=== PATIENT | female | born 1950 | race Hispanic/Latino ===

== ENCOUNTER 2021-01-22 07:23 | Emergency (ER) | payer OTHER ==
[2021-01-22] MEDS ORDERED: HYDROCODONE/ACETAMINOPHEN 5/325 MG TAB ONE (08:36)
== END 2021-01-22 09:55 | disposition home or self-care (01) ==
LOC: EDH 07:23
DX: M54.30 Sciatica, unspecified side (principal); M79.2 Neuralgia and neuritis, unspecified; E66.9 Obesity, unspecified; E11.9 Type 2 diabetes mellitus without complications; E03.9 Hypothyroidism, unspecified; Z90.49 Acquired absence of other specified parts of digestive tract; Z90.710 Acquired absence of both cervix and uterus; Z88.0 Allergy status to penicillin